=== PATIENT | male | born 1990 | race African-American/Black ===

== ENCOUNTER 2024-09-25 10:41 | Inpatient (IN) | payer OTHER ==
[2024-09-25 10:59] VITALS: BMI 26.4
[2024-09-25] MEDS ORDERED: MAG HYDROX/AL HYDROX/SIMETH 30 ML UNIT-DOSE CUP PO PRN (11:25)
[2024-09-25] MEDS ORDERED: NICOTINE POLACRILEX 2 MG LOZENGE BC PRN (11:25)
[2024-09-25] MEDS ORDERED: MAGNESIUM HYDROX 2400MG/30ML ORAL SUSPENSION 30 ML CUP PO PRN (11:25)
[2024-09-25] MEDS ORDERED: ACETAMINOPHEN 325 MG TABLET (FP) PO PRN (11:25)
[2024-09-25] MEDS ORDERED: P-EPHED 60MG/TRIPROLIDI 2.5MG TABLET PO PRN (11:25)
[2024-09-25] MEDS ORDERED: NICOTINE POLACRILEX 2 MG GUM BUC PRN (11:25)
[2024-09-25] MEDS ORDERED: hydrOXYzine PAMOATE 25 MG CAPSULE (FP) PO PRN (11:25)
[2024-09-25] MEDS ORDERED: IBUPROFEN 600 MG TABLET (FP) PO PRN (11:25)
[2024-09-25] MEDS ORDERED: POLYETHYLENE GLYCOL (HEALTHYLAX) 3350 17 GM PACKET PO PRN (11:25)
[2024-09-25] MEDS ORDERED: LOPERAMIDE HCL 2 MG CAPSULE PO PRN (11:25)
[2024-09-25] MEDS ORDERED: NALOXONE (NARCAN) HCL 4 MG/0.1 ML SPRAY NS PRN (11:25)
[2024-09-25] MEDS ORDERED: IBUPROFEN 400 MG TABLET (FP) PO PRN (11:25)
[2024-09-25] MEDS ORDERED: DOCUSATE SODIUM 100 MG CAPSULE (FP) PO PRN (11:25)
[2024-09-25] MEDS ORDERED: TUBERCULIN PPD 5 TU/0.1ML VIAL ID ONE (13:13)
[2024-09-25] MEDS: BACITRACIN 0.9 GM PACKET TP SCH (13:14)
[2024-09-25] MEDS: TUBERCULIN PPD 5 TU/0.1ML VIAL ID ONE (13:38)
[2024-09-25] MEDS: BENZONATATE 200 MG CAPSULE PO PRN (14:47)
[2024-09-25] MEDS: THIAMINE 100 MG TABLET PO SCH (21:34)
[2024-09-25] MEDS: MELATONIN 5 MG TABLETS PO SCH (21:34)
[2024-09-25] MEDS: guaiFENesin 600 MG TABLET.ER (FP) PO PRN (21:34)
[2024-09-25] MEDS: BENZOCAINE/MENTHOL (CHLORASEPTIC ) LOZENGE MM PRN (21:35)
[2024-09-26] MEDS: PRENATAL VITAMINS W/ FOLIC ACID TABLET (FP) PO SCH (09:57)
[2024-09-26 11:40] LABS: POTASSIUM 3.8 mmol/L (3.5-5.1)
[2024-09-26 11:42] LABS: PH,URINE 6.5 (5.0-8.0); URINE APPEARANCE CLEAR; URINE BILIRUBIN NEGATIVE (NEGATIVE); URINE COLOR YELLOW; URINE GLUCOSE (UA) NEGATIVE (NEGATIVE); URINE KETONE NEGATIVE (NEGATIVE); URINE LEUK ESTERASE NEGATIVE (NEGATIVE); URINE NITRITE NEGATIVE (NEGATIVE); URINE PROTEIN NEGATIVE (NEGATIVE); URINE UROBILINOGEN 0.2 mg/dL (0.2-1.0)
[2024-09-26 11:42] LABS: HEMATOCRIT 42.3 % (35.4-49); MCH 28.3 pg (25.7-33.7); MEAN CELL VOLUME 85.8 fl (80-96); MEAN PLT VOLUME 9.9 fl (7.5-11.1); PLATELET COUNT 129 10^3/uL (134-434); RBC 4.93 M/mm3 (4.00-5.60); RDW 13.9 % (11.9-15.9); WHITE BLOOD COUNT 4.7 K/mm3 (4.0-10.0)
[2024-09-26 11:43] LABS: ALBUMIN 3.8 g/dl (3.4-5.0); BLOOD UREA NITROGEN 6.9 mg/dL (7-18); CALCIUM 9.1 mg/dL (8.5-10.1)
[2024-09-26 11:46] LABS: CREATININE 1.1 mg/dL (0.55-1.3)
[2024-09-26 11:48] LABS: BILIRUBIN,TOTAL 0.4 mg/dL (0.2-1); TOT PROT 7.8 g/dl (6.4-8.2)
[2024-09-26 12:43] LABS: HIV INTERPRETATION NEGATIVE (NEGATIVE)
[2024-09-26] MEDS: MELATONIN 5 MG TABLETS PO SCH (21:04)
[2024-09-28] MEDS: BACLOFEN 10 MG TABLET (FP) PO SCH (13:26)
[2024-09-28] MEDS: SALICYLIC ACID (WART REMOVER) 9 ML LIQUID TP SCH (18:24)
[2024-09-29] MEDS: SUVOREXANT 10 MG TABLET PO PRN (21:27)
[2024-09-30] MEDS: SUVOREXANT 10 MG TABLET PO PRN (21:08)
[2024-10-02] MEDS: SUVOREXANT 10 MG TABLET PO PRN (21:07)
[2024-10-04] MEDS: CALAMINE 8% TOPICAL LOTION 177 ML BOTTLE TP PRN (09:44)
[2024-10-04] MEDS: CALAMINE 8% TOPICAL LOTION 177 ML BOTTLE TP SCH (13:29)
[2024-10-05] MEDS: SUVOREXANT 10 MG TABLET PO PRN (21:34)
[2024-10-07 06:40] VITALS: TEMP 97.5
[2024-10-07] MEDS: SUVOREXANT 10 MG TABLET PO PRN (21:48)
[2024-10-09 05:21] VITALS: BP 118/82; PULSE 61; RESP 16
[2024-10-09] MEDS ORDERED: SUVOREXANT 10 MG TABLET PO PRN (22:00)
== END 2024-10-09 09:24 | disposition home or self-care (01) | DRG 772 ==
LOC: YASAS 10:41 → Y3W 12:27
PROVIDERS: ADMIT Psychiatry & Neurology Pain Medicine; ATTEND Psychiatry & Neurology Pain Medicine
PROC: HZ42ZZZ Group Counseling for Substance Abuse Treatment, Cognitive-Behavioral (ICD-10-PCS; principal; 2024-09-25)
DX: F14.10 Cocaine abuse, uncomplicated (principal); F18.288 Inhalant dependence with other inhalant-induced disorder; F12.20 Cannabis dependence, uncomplicated; F17.210 Nicotine dependence, cigarettes, uncomplicated; G47.00 Insomnia, unspecified; L85.3 Xerosis cutis; L84 Corns and callosities
CPT/HCPCS: 36415; 80053; 80305; 80307; 81003; 85027; 86780; 86803; 87389; 87811; 93005; 93010; J0475